=== PATIENT | male | born 1965 | race Caucasian/White ===

== ENCOUNTER → 2017-05-08 | Outpatient (CLI) | payer BC ==
--- NOTE | 2017-05-08 08:23 | REP ---
PA and lateral chest: There are no comparisons. The lung moraes are clear. The cardiac size is normal The wood, mediastinum, and bony thorax are unremarkable. Impression: Negative PA and lateral chest. Signed by Cory Adam MD 05/08/2017 08:15 A
--- NOTE | 2017-05-08 08:36 | REP ---
Radionuclide pulmonary ventilation and perfusion scan: Study is performed with 1 mCi of technetium 99 labeled DTPA aerosol followed by 5.5 mCi of technetium 99m labeled MAA intravenously. Comparison is the PA and lateral plain film study performed the same date. There are no perfusion defects. There are no ventilation defects. Impression: Negative pulmonary ventilation and perfusion scan. Signed by Croy Adam MD 05/08/2017 08:27 A
== END ==
LOC: M RAD 07:38
PROVIDERS: ATTEND Internal Medicine Pulmonary Disease
DX: R06.02 Shortness of breath (principal)
CPT/HCPCS: 71020; 78582; A9540; A9567

== ENCOUNTER → 2020-04-09 | Outpatient (CLI) | payer BC ==
[~2020-04-09] MED LIST: ASPI81TA86 PO; BREO1INH3 INH; LEXA1TAB2 PO; ROSU5TAB5 PO
== END ==
LOC: M LABSMTC 11:08
PROVIDERS: ATTEND Anesthesiology
DX: Z01.818 Encounter for other preprocedural examination (principal); Z11.59 Encounter for screening for other viral diseases; Z20.828 Contact with and (suspected) exposure to other viral communicable diseases
CPT/HCPCS: C9803; U0002